=== PATIENT | female | born 2005 | race Caucasian/White ===

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

== ENCOUNTER 2025-03-25 21:01 | Observation (INO) | payer MEDICAID, OTHER ==
[~2025-03-25] VITALS: Ht 162.6 cm; Wt 54.9 kg
--- NOTE | 2025-03-25 23:33 | DVH ---
US BIOPHYSICAL PROFILE US OB LIMITED CLINICAL HISTORY: NO CARE COMPARISON: None TECHNIQUE: Real-time grayscale, color flow and M-mode imaging of the gravid uterus is performed. FINDINGS: Single living intrauterine gestation. Cephalic presentation. heart rate 141 beats per minute. Average ultrasound age 33 weeks 1 day. Estimated due date 05/12/2025. measurements (cm): BPD 8.6, HC 30.9, AC 27.8, FL 6.0. Estimated weight: 1920 g Amniotic fluid index: 15.1 cm Biophysical profile: 8 out of 8. (2 breathing, 2 activity, 2 tone, 2 ORNDA) Placenta is posterior, grade 2. The cervix measures approximately 3.1 cm in length and appears close d. No definite evidence of placental abruption or previa at this time. IMPRESSION: Single living intrauterine gestation as above. Biophysical profile score 8 out of 8.
--- NOTE | 2025-03-25 23:34 | DVH ---
US BIOPHYSICAL PROFILE US OB LIMITED CLINICAL HISTORY: NO CARE COMPARISON: None TECHNIQUE: Real-time grayscale, color flow and M-mode imaging of the gravid uterus is performed. FINDINGS: Single living intrauterine gestation. Cephalic presentation. heart rate 141 beats per minute. Average ultrasound age 33 weeks 1 day. Estimated due date 05/12/2025. measurements (cm): BPD 8.6, HC 30.9, AC 27.8, FL 6.0. Estimated weight: 1920 g Amniotic fluid index: 15.1 cm Biophysical profile: 8 out of 8. (2 breathing, 2 activity, 2 tone, 2 RONDA) Placenta is posterior, grade 2. The cervix measures approximately 3.1 cm in length and appears close d. No definite evidence of placental abruption or previa at this time. IMPRESSION: Single living intrauterine gestation as above. Biophysical profile score 8 out of 8.
[2025-03-26 00:15] LABS: Vaginal Bacteria Few; Vaginal Clue Cells None Seen; Vaginal Epithelial Cells Few; Vaginal Trichomonas Not Present
[2025-03-26 00:16] LABS: Urine Bacteria FEW /hpf (None Seen); Urine Blood Negative /uL (Negative); Urine Clarity Clear (Clear); Urine Color Light-Yellow (Yellow); Urine Protein, UAD Negative (Negative); Urine Specific Gravity 1.004 (1.001-1.035); Urine Squamous Epithelial Cell FEW /hpf (<5); Urine Urobilinogen Normal (Negative); Urine WBC 1 /HPF (0-5); Urine pH 6.5 (5.0-9.0)
[2025-03-26 00:45] LABS: Amphetamine Screen, Urine Neg (NEGATIVE); Barbiturate Scree,Urine Neg (NEGATIVE); Benzodiazephine Screen, Urine Neg (NEGATIVE); Cannabinoid Screen, Urine Neg (NEGATIVE); Cocaine Screen, Urine Neg (NEGATIVE); Opiate Scree,Urine Neg (NEGATIVE); Phencyclidine Screen, Urine Neg (NEGATIVE)
--- NOTE | 2025-03-26 01:39 | DVHDS2 ---
Physician Discharge Progress N Final Diagnosis: IUP at 33w 3d Round Ligament pain Operations or Procedures: Operations or Procedures S: 19yo with EDC of 05/12/25, EGA 33w 3d presents to place with a report of pelvic pain / pressure [id number]. She reports decreased movements, no LOF, vaginal bleeding, SALDANA or vision changes. She reports mucus d/c light green in color from vagina x 2weeks. Limited care with [facility], [facility] last visit was in November,, no longer a [place] member, yet to find another OB care provider. [facility] she was given phone number to contact Dr Ray's office to possibly re-start care. Taking vitamins and iron O: A&O x3, NAD, well groomed. pleasant. Appropriate and normal mood and affect Afebrile, VSS Respiration unlabored Heart and lungs sounds: normal Abdomen: Gravid, non-tender to palpation. Fundal Ht 38cm. Cephalic presentation Extremities: No edema UA: Neg for nitrites and leukocyte EFM: Very occasional contraction; 1 in 30minutes, mild, not felt by patient FHR baseline 135bpm with moderate variability and accelerations, no deceleration OB US report: average EGA of 33w 1d, cephalic presentation, RONDA 15.1cm, Placenta Posterior and grade 2. No previa or abruption. Cervical length 3.1cm, appears closed. Biophysical Profile 05/26 Wet mount negative for clue cells, yeast and Trichomonads Re-assessment at 00:36 Pt reports pain resolved, only mild pressure and same is not present all the time, just with certain movements A: NST reactive Normal Biophysical Profile Limited Care P: Discharge home Call OB provider on Thursday03/27/25 to re-establish care Educated on relief measures for RLP, good ergonomics, need for adequate hydration - advised to maintain adequate water intake 3rd trimester emergency S&S FMC, labor & pre-eclampsia precautions reviewed with pt; advised to seek health care if any Condition on Discharge: Stable Disposition: Home Discharge Instructions: Diet: Regular Activity: No Restrictions, As Tolerated Activity comment: Balance activities with rest periods Follow Up/Referral: Advised to call dosctor's office on Thursday03/27/25 to re-start care. Medications: None Follow Up Care: Discharge Statement: 3rd trimester emergency S&S FMC, labor & pre-eclampsia pr ecautions reviewed with pt; advised to seek health care if any "Patient was advised to return to the ER or call 911 if any headaches, dizziness, shortness of breath, chest pain, abdominal pain, bleeding, fevers, or worsening of medical condition. Patient was counseled about treatment plan, medications, possible side effects, patientverbalized understanding. All questions were answered to the best of my ability. This discharge took greater then 30 minutes in planning, reviewing documentation, counseling the patient, and discussing with other team members." Visit Coding OBGYN Date of Service: Mar 26, 2025 Billing Provider: HU PORTER CNM [employer]ICE STATION MANAGER Common Visit Codes: 05363-PJU/OBS SAME DATE (HIGH) AUTOMOBILE SERVICE STATION MANAGER Procedure Codes: 73215-38- NON-STRESS TEST HU PORTER CNM Mar 26, 2025 01:39
== END 2025-03-26 00:50 | disposition home or self-care (01) ==
LOC: LDRP 21:01
PROVIDERS: ADMIT Obstetrics & Gynecology; ATTEND Obstetrics & Gynecology
DX: O26.893 Other specified pregnancy related conditions, third trimester (principal); R10.2 Pelvic and perineal pain; O09.33 Supervision of pregnancy with insufficient antenatal care, third trimester; Z3A.33 33 weeks gestation of pregnancy; Z79.899 Other long term (current) drug therapy; Z98.890 Other specified postprocedural states
CPT/HCPCS: 59025; 76805; 76819; 80307; 81001; 81002; 87210; 94760; G0378

== ENCOUNTER 2025-03-31 18:37 | Observation (INO) | payer MEDICAID ==
[~2025-03-31] VITALS: Ht 160 cm; Wt 54.9 kg
[2025-03-31] MEDS ORDERED: LACTATED RINGER'S 1,000 ML IV SCH (20:30)
[2025-03-31] MEDS: ONDANSETRON HCL 4 MG/2 ML VIAL IV ONE (20:47)
[2025-03-31] MEDS: LOPERAMIDE HCL 2 MG CAP/TAB PO ONE (20:47)
[2025-03-31 21:14] LABS: Basophils # (auto) 0 10 ^3/uL (0-0.2); Basophils % (auto) 0.1 % (0.0-2.0); Eosinophils # (auto) 0.1 10 ^3/uL (0-0.8); Eosinophils % (auto) 0.4 % (0.0-7.0); Hematocrit 34.1 % (36.0-46.0); Hemoglobin 11.5 g/dL (12.2-16.2); Lymphocytes # (auto) 0.4 10 ^3/uL (0.4-5.4); Lymphocytes % (auto) 2.3 % (10.0-50.0); Mean Corpuscular Hemoglobin 27.8 pg (28.0-32.0); Mean Corpuscular Hgb Conc. 33.8 g/dL (32.0-36.0); Mean Corpuscular Volume 82.2 fL (80.0-100.0); Monocytes # (auto) 1.2 10 ^3/uL (0-1.3); Monocytes % (auto) 6.3 % (0.0-12.0); Neutrophils # (auto) 17.1 10 ^3/uL (1.6-8.6); Neutrophils % (auto) 90.9 % (37.0-80.0); Nucleated Red Blood Cells % 0.2 %; Platelet Count (auto) 257 10^3/uL (140-450); Red Blood Cells 4.15 10^6/uL (4.0-5.20); Red Cell Distribution Width 13.9 % (11.8-14.3); White Blood Cell 18.9 10^3/uL (4.4-10.8)
[2025-03-31 21:33] LABS: Anion Gap 15 (5-15)
[2025-03-31 21:46] LABS: Lipase 28 U/L (12-53)
[2025-03-31 21:47] LABS: Carbon Dioxide 20 mmol/L (20-31); Chloride 103 mmol/L (98-107); Glucose 80 mg/dL (74-106); Potassium 3.1 mmol/L (3.5-5.1); Sodium 138 mmol/L (136-145)
[2025-03-31 21:48] LABS: Alanine Aminotransferase 11 U/L (7-40); Albumin 4.5 g/dL (3.2-4.8); Alkaline Phosphatase 182 U/L (46-116); Amylase 96 U/L (30-118); Aspartate Aminotransferase 18 U/L (<34); BUN/Creatinine Ratio 8.6 (10.0-20.0); Bilirubin, Total 0.7 mg/dL (0.2-1.0); Blood Urea Nitrogen < 5 mg/dL (9-23); Calcium 9.4 mg/dL (8.7-10.4); Total Protein 7.2 g/dL (5.7-8.2)
[2025-03-31 22:06] LABS: Urine Bacteria FEW /hpf (None Seen); Urine Blood Negative /uL (Negative); Urine Clarity Turbid (Clear); Urine Color Yellow (Yellow); Urine Mucus FEW (None Seen); Urine Protein, UAD TRACE (Negative); Urine Specific Gravity 1.015 (1.001-1.035); Urine Squamous Epithelial Cell FEW /hpf (<5); Urine Urobilinogen Normal (Negative); Urine WBC 3 /HPF (0-5); Urine pH 6.5 (5.0-9.0)
[2025-03-31] MEDS: POTASSIUM CHL 20 Meq TABLET PO ONE (22:26)
[2025-03-31] MEDS: LACTATED RINGER'S 1,000 ML IV ONE (22:27)
--- NOTE | 2025-04-01 06:25 | DVHDS2 ---
Physician Discharge Progress N Final Diagnosis: Acute Gastroenteritis Secondary Diagnosis: Threatened labor Hypokalemia Leukocytosis Operations or Procedures: Operations or Procedures NST, OB ultrasound Other Interventions Other Interventions IV hydration IV antiemetics PO antidiarrheal meds K+ replacement orally monitoring Cervix checked, closed, not in labor Condition on Discharge: Guarded Disposition: Home Discharge Instructions: Diet: See Comment (BRAT diet, plenty of clear fluids, maintain oral hydration) Activity: Light activity Follow Up/Referral: 2-3 days w/ Primary OB Medications: OTC Loperamide, if needed for diarrhea Follow Up Care: Discharge Statement: "Patient was advised to return to the ER or call 911 if any headaches, dizziness, shortness of breath, chest pain, abdominal pain, bleeding, fevers, or worsening of medical condition. Patient was counseled about treatment plan, medications, possible side effects, patientverbalized understanding. All questions were answered to the best of my ability. This discharge took greater then 30 minutes in planning, reviewing documentation, counseling the patient, and discussing with other team members." Visit Coding OBGYN Date of Service: Apr 01, 2025 Billing Provider: TAISHA JOHNS DO E COMMERCE MERCHANT Common Visit Codes: 94323-SMN/OBS SAME DATE (HIGH) E COMMERCE MERCHANT Procedure Codes: 86401-54- NON-STRESS TEST TAISHA JOHNS DO Apr 01, 2025 06:25
== END 2025-03-31 22:40 | disposition home or self-care (01) ==
LOC: LDRP 18:37
PROVIDERS: ADMIT Obstetrics & Gynecology; ATTEND Obstetrics & Gynecology
DX: O99.613 Diseases of the digestive system complicating pregnancy, third trimester (principal); K52.9 Noninfective gastroenteritis and colitis, unspecified; O99.283 Endocrine, nutritional and metabolic diseases complicating pregnancy, third trimester; E87.6 Hypokalemia; O60.03 Preterm labor without delivery, third trimester; Z79.899 Other long term (current) drug therapy; Z3A.34 34 weeks gestation of pregnancy
CPT/HCPCS: 36415; 80053; 81001; 82150; 83690; 85025; 96361; 96374; G0378; J2405; 59025; 96360

== ENCOUNTER 2025-04-10 01:32 | Observation (INO) | payer MEDICAID ==
[~2025-04-10] VITALS: Ht 160 cm; Wt 55.3 kg
--- NOTE | 2025-04-10 11:07 | DVHDS2 ---
Discharge Summary Date of Admission Apr 10, 2025 at 01:32 Date of Discharge: Apr 10, 2025 Admitting Diagnosis Patient arrived complaining of pelvic pain contraction like and dysuria. Labs/Diagnostic Data: ent left AMA Brief Hx & Hospital Course: patient left AMA Consults/Reason for consult None Condition at Discharge: Fair Final Diagnosis/Problems List left AMA pelvic pain questionable labor Discharge Disposition: Home Discharge Instruct/Medications Diet: Regular, See Comment Diet comment: N/A Activity: Light activity Activity comment: N/A Follow Up/Referral: Pelvic rest kick counts labor precautions NST performed Discharge Statement: "Patient was advised to return to the ER or call 911 if any headaches, dizziness, shortness of breath, chest pain, abdominal pain, bleeding, fevers, or worsening of medical condition. Patient was counseled about treatment plan, medications, possible side effects, patientverbalized understanding. All questions were answered to the best of my ability. This discharge took greater then 30 minutes in planning, reviewing documentation, counseling the patient, and discussing with other team members." ASSESSMENT ASSESSMENT Assessment Visit Coding OBGYN Date of Service: Apr 10, 2025 Billing Provider: NATHAN PAULINO DO CONSTRUCTION AND MAINTENANCE INSPECTOR Common Visit Codes: 14204-[id number] INP/OBS CARE(HIGH), 41559-YQL/OBS SAME DATE (LOW), 93491-QGQ/OBS SAME DATE (MOD) CONSTRUCTION AND MAINTENANCE INSPECTOR Procedure Codes: 16039-01- NON-STRESS TEST NATHAN PAULINO DO Apr 10, 2025 11:07
== END 2025-04-10 01:47 | disposition left against medical advice (07) ==
LOC: LDRP 01:32
PROVIDERS: ADMIT Obstetrics & Gynecology; ATTEND Obstetrics & Gynecology
DX: O62.9 Abnormality of forces of labor, unspecified (principal); Z3A.35 35 weeks gestation of pregnancy; Z79.899 Other long term (current) drug therapy

== ENCOUNTER 2025-05-08 11:00 | Observation (INO) | payer MEDICAID ==
[~2025-05-08] VITALS: Ht 160 cm; Wt 58.1 kg
--- NOTE | 2025-05-08 12:54 | DVH ---
BIOPHYSICAL PROFILE HISTORY: decreased movement TECHNIQUE: Multiple transabdominal real-time grayscale sonographic images through the gravid uterus of the fetus with duplex Doppler color flow and M-mode spectral analysis FINDINGS: BIOPHYSICAL PROFILE: breathing score: 2 movement score: 2 tone score: 2 Quantitative RONDA score: 2 (RONDA: 17 Cm.) Total score: 8 The cervix was not seen Single live fetus in cephalic presentation. heart rate 133 beats per minute. Grade II posterior placenta without previa or abruption IMPRESSION: Biophysical profile score: 8/8
--- NOTE | 2025-05-09 13:40 | DVHDS2 ---
Physician Discharge Progress N Final Diagnosis: sep fm,abd pain 39wks Operations or Procedures: Operations or Procedures nst reactive reviwednealo Condition on Discharge: Good Disposition: Home Discharge Instructions: Diet: Regular Activity: Light activity Medications: na Follow Up Care: Specialist: 1w Discharge Statement: "Patient was advised to return to the ER or call 911 if any headaches, dizziness, shortness of breath, chest pain, abdominal pain, bleeding, fevers, or worsening of medical condition. Patient was counseled about treatment plan, medications, possible side effects, patientverbalized understanding. All questions were answered to the best of my ability. This discharge took greater then 30 minutes in planning, reviewing documentation , counseling the patient, and discussing with other team members." Visit Coding OBGYN Date of Service: May 08, 2025 Billing Provider: TWIN SCHAEFER DO INSTITUTE DIRECTOR Common Visit Codes: 57157-KBLFPUL OBS CARE (HIGH) INSTITUTE DIRECTOR Procedure Codes: 65539-53- NON-STRESS TEST TWIN SCHAEFER DO May 09, 2025 13:40
== END 2025-05-08 12:41 | disposition home or self-care (01) ==
LOC: LDRP 11:00
PROVIDERS: ADMIT Obstetrics & Gynecology; ATTEND Obstetrics & Gynecology
DX: O36.8130 Decreased fetal movements, third trimester, not applicable or unspecified (principal); Z98.890 Other specified postprocedural states; Z79.899 Other long term (current) drug therapy; Z3A.39 39 weeks gestation of pregnancy
CPT/HCPCS: 59025; 76819; 81002; 82948; 94760; G0378

== ENCOUNTER 2025-05-26 15:52 | Emergency (ER) | payer MEDICAID ==
[~2025-05-26] VITALS: Ht 162.6 cm; Wt 59.0 kg
[2025-05-26 16:01] VITALS: PULSE 86; RESP 18; O2SAT 100
--- NOTE | 2025-05-26 16:05 | ED.PDOC ---
History of Present Illness HPI Comments 19 year old female presents to the ED with a chief complaint of hypotension onset today (05/26/25). Patient went to urgent care for possible Mastitis, presented with nausea, vomiting, weakness, pale. Rapid response was activated, was brought to ED on a wheelchair. Patient gave on 05/11/25, has been br east feeding, using pump. Currently experiencing RT breast pain and swelling. She woke up this morning experiencing flu-like symptoms. No other symptoms or modifying factors present at this time. Chief Complaint: Low Blood Pressure Time Seen by MD: 15:55 Reviewed Notes: Medications, Allergies Allergies: Coded Allergies: NO KNOWN ALLERGIES (Unverified , 06/29/18) Home Meds Active Scripts Cephalexin (KEFLEX CAPSULE) 250 Mg Cp, 250 MG PO QID for 5 Days, #20 BOTTLE Prov:CHRISTINE HERNANDEZ MD 05/26/25 Information Source: Patient Mode of Arrival: Wheelchair Severity: Moderate Timing: Hours Duration: Since onset Prehospital treatment: None Past Medical History PAST MEDICAL HISTORY: Denies Surgical History: Denies all surgeries STRUCTURAL BIOLOGIST History: No Pertinent STRUCTURAL BIOLOGIST History Family History Family History: Unknown Social History Smoker: Non-Smoker Alcohol: Denies ETOH Use Drugs: Denies Drug Use Lives In: Home Constitutional: reports: weakness; denies: chills, diaphoresis, fatigue, fever, malaise, sweats, others EENTM: denies: blurred vision, double vision, ear bleeding, ear discharge, ear drainage, ear pain, ear ringing, eye pain, eye redness, hearing loss, mouth pain, mouth swelling, nasal discharge, nose bleeding, nose congestion, nose pain, photophobia, tearing, throat pain, throat swelling, voice changes, others Respiratory: denies: cough, hemoptysis, orthopnea, SOB at rest, shortness of breath, SOB with excertion, stridor, wheezing, others Cardiovascular: reports: others (hypotension); denies: chest pain, dizzy spells, diaphoresis, Dyspnea on exertion, edema, irregular heart beat, left arm pain, lightheadedness, palpitations, PND, syncope Gastrointestinal: reports: nausea, vomiting; denies: abdomen distended, abdominal pain, blood streaked bowels, constipated, diarrhea, dysphagia, difficulty swallowing, hematemesis, melena, poor appetite, poor fluid intake, rectal bleeding, rectal pain, others Genitourinary: denies: abnormal vagina bleeding, burning, dyspareunia, dysuria, flank pain, frequency, hematuria, incontinence, pain, , vagina discharge, urgency, others Neurological: reports: weakness; denies: dizziness, fainting, headache, left sided numbness, left sided weakness, numbness, paresthesia, pre-existing deficit, right sided numbness, right sided weakness, seizure, speech problems, tingling, tremors, others Musculoskeletal: denies: back pain, gout, joint pain, joint swelling, muscle pain, muscle stiffness, neck pain, others Integumetry: reports: change in color (pale); denies: bruises, change in hair/ nails, dryness, laceration, lesions, lumps, rash, wounds, others Allergic/Immunocompromised: denies: Difficulty Healing, Frequent Infections, Hives, Itching, others Hematologic/Lymphatic: denies: anemia, blood clots, easy bleeding, easy bruising, swollen glands, others Endocrine: denies: excessive hunger, excessive sweating, excessive thirst, excessive urination, flushing, intolerance to cold, intolerance to heat, unexplained weight gain, unexplained weight loss, others Psychiatric: denies: anxiety, bipolar disorder, depression, hopeless, panic d isorder, schizophrenia, sleepless, suicidal, others All Other Systems: Reviewed and Negative Physical Exam General Appearance: Moderate Distress, Normal HEENT: Normal ENT Inspection, Pharynx Normal, TMs Normal Neck: Full Range of Motion, Non-Tender, Normal, Normal Inspection Respiratory: Chest Non-Tender, Lungs Clear, No Accessory Muscle Use, No Respiratory Distress, Normal Breath Sounds Cardiovascular: No Edema, No JVD, No Murmur, No Gallop, Normal Peripheral Pulses, Regular Rate/Rhythm Breast Exam: (R) Tenderness Gastrointestinal: No Organomegaly, Non Tender, No Pulsatile Mass, Normal Bowel Sounds, Soft Genitalia: Deferred Pelvic: Deferred Rectal: Deferred Extremities: No calf tenderness, Normal capillary refill, Normal inspection, Normal range of motion, Non-tender, No pedal edema Musculoskeletal : Apperance: Normal Neurologic: Alert, national insurance officer II-XII nml as Tested, No Motor Deficits, Normal Affect, Normal Mood, No Sensory Deficits Cerebellar Function: NOT DONE Reflexes: NOT DONE Skin: Dry, Normal Color, Warm Peripheral Pulses: 3+ Radial (R), 3+ Radial (L) Lymphatic: No Adenopathy Was a procedure done? Was a procedure done?: No EKG EKG : Pulse Rate (adult): 82 Cardiac Rhythm: NSR Differential Dx Considerations may include: Vasovagal Electrolyte imbalance X-Ray, Labs, Meds, VS Vital Signs Date Time Temp Pulse Resp B/P (MAP) Pulse Ox O2 Delivery O2 Flow Rate FiO2 05/26/25 16:05 82 05/26/25 16:01 86 18 100 Room Air* 0 21 05/26/25 16:00 82 05/26/25 16:00 98.2 86 19 96/65 (75) 100 98.2 05/26/25 15:53 98.2 92 20 96/65 100 98.2 Lab Test 05/26/25 16:25 Range/Units White Blood Count 11.8 H 4.4-10.8 10^3/uL Red Blood Count 3.63 L 4.0-5.20 10^6/uL Hemoglobin 9.8 L 12.2-16.2 g/dL Hematocrit 30.9 L 36.0-46.0 % Mean Corpuscular Volume 85.2 80.0-100.0 fL Mean Corpuscular Hemoglobin 27.1 L 28.0-32.0 pg Mean Corpuscular Hemoglobin Concent 31.8 L 32.0-36.0 g/dL Red Cell Distribution Width 17.5 H 11.8-14.3 % Platelet Count 307 140-450 10^3/uL Mean Platelet Volume 7.3 6.9-10.8 fL Neutrophils (%) (Auto) 88.0 H 37.0-80.0 % Lymphocytes (%) (Auto) 4.3 L 10.0-50.0 % Monocytes (%) (Auto) 6.6 0.0-12.0 % Eosinophils (%) (Auto) 0.9 0.0-7.0 % Basophils (%) (Auto) 0.2 0.0-2.0 % Neutrophils # (Auto) 10.4 H 1.6-8.6 10 ^3/uL Lymphocytes # (Auto) 0.5 0.4-5.4 10 ^3/uL Monocytes # (Auto) 0.8 0-1.3 10 ^3/uL Eosinophils # (Auto) 0.1 0-0.8 10 ^3/uL Basophils # (Auto) 0 0-0.2 10 ^3/uL Nucleated Red Blood Cells 0.0 % Sodium Level 143 136-145 mmol/L Potassium Level 2.8 L 3.5-5.1 mmol/L Chloride Level 112 H 98-107 mmol/L Carbon Dioxide Level 19 L 20-31 mmol/L Anion Gap 12 5-15 Blood Urea Nitrogen 13 9-23 mg/dL Creatinine 0.52 L 0.550-1.02 mg/dL Glomerular Filtration Rate Calc 137 >90 mL/min BUN/Creatinine Ratio 25.0 H 10.0-20.0 Serum Glucose 75 74-106 mg/dL Calcium Level 8.6 L 8.7-10.4 mg/dL Current Medications Medications (Trade) Dose Ordered Sig/Christiano Route Start Time Stop Time Status Last Admin Sodium Chloride 1,000 ml @ 1,000 mls/hr Q1H ONCE IV 05/26/25 16:15 05/26/25 17:14 DC 05/26/25 16:29 Sodium Chloride 1,000 ml @ 150 mls/hr Q6H40M ONCE IV 05/26/25 16:15 05/26/25 22:54 05/26/25 17:07 Patient alert. Vasovagal. Vitals stable. Answering questions. Establish intravenous access. Was given fluids. Right breast slightly enlarged. Mastoiditis. Explained to the patient. Continue monitoring. Followed by night physician Time of 1ST Reevaluation: 16:25 Reevaluation 1ST: Improved Patient Education/Counseling: Diagnosis, Treatment, Prognosis Family Education/Counseling: No Family Present SEPSIS Sepsis Screen Date sepsis recognized/suspect: May 26, 2025 Time Sepsis recognized/suspect: 1557 Recent Procedure: No On Antibiotic Therapy: No Respiratory Rate >20: No Heart Rate >90: Yes Temp<36 C (96.8 F) or >38.3 C: No SBP <90 or MAP <65 mmHG: No New Acute Mental Status Change: No Is the patient on CPAP, BIPAP,: No Physician Orders Electrocardigram (05/26/25 16:04) Urinalysis (05/26/25 16:11) Sodium Chloride 0.9% (05/26/25 16:15) Vital Signs Date Time Temp Pulse Resp B/P (MAP) Pulse Ox O2 Delivery O2 Flow Rate FiO2 05/26/25 16:05 82 05/26/25 16:01 86 18 100 Room Air* 0 21 05/26/25 16:00 82 05/26/25 16:00 98.2 86 19 96/65 (75) 100 98.2 05/26/25 15:53 98.2 92 20 96/65 100 98.2 Laboratory Tests Test 05/26/25 16:25 White Blood Count 11.8 10^3/uL (4.4-10.8) H Medications Medications Dose Ordered Sig/Christiano Route Start Time Stop Time Status Last Admin Dose Admin Sodium Chloride 1,000 ml @ 150 mls/hr Q6H40M ONCE IV 05/26/25 16:15 05/26/25 22:54 05/26/25 17:07 Sodium Chloride 1,000 ml @ 1,000 mls/hr Q1H ONCE IV 05/26/25 16:15 05/26/25 17:14 DC 05/26/25 16:29 Departure 1 Departure Time of Disposition: 16:53 Impression: Primary Impression: Hypokalemia Additional Impression: Mastoiditis Qualified Codes: H70.91 - Unspecified mastoiditis, right ear Disposition: 30 STILL A PATIENT Condition: Good e-Prescriptions Cephalexin (KEFLEX CAPSULE) 250 Mg Cp 250 MG PO QID for 5 Days, #20 BOTTLE Prov: CHRISTINE HERNANDEZ MD 05/26/25 Discharged With: Self Critical Care Note Critical Care Time?: No Stability Stability form required: No Heart Score Heart Score: Heart Score Response (Comments) Value History N/A 0 EKG N/A 0 Age N/A 0 Risk Factors N/A 0 Troponin N/A 0 Total 0 I personally scribed for CHRISTINE HERNANDEZ MD ([email or web address]) on 05/26/25 at 16:05. Electronically submitted by Yancy Mann ([email or web address]). CHRISTINE HERNANDEZ MD May 26, 2025 16:05
[2025-05-26] MEDS: SODIUM CHLORIDE 0.9% 1,000 ML IV ONE ×2 (16:29→17:07)
[2025-05-26 16:54] LABS: Sodium 143 mmol/L (136-145)
[2025-05-26] MEDS ORDERED: CEPH250C PO (16:54)
[2025-05-26 16:55] LABS: Anion Gap 12 (5-15)
[2025-05-26 16:59] LABS: Calcium 8.6 mg/dL (8.7-10.4); Carbon Dioxide 19 mmol/L (20-31); Chloride 112 mmol/L (98-107); Hematocrit 30.9 % (36.0-46.0); Hemoglobin 9.8 g/dL (12.2-16.2); Mean Corpuscular Hemoglobin 27.1 pg (28.0-32.0); Mean Corpuscular Volume 85.2 fL (80.0-100.0); Nucleated Red Blood Cells % 0.0 %; Potassium 2.8 mmol/L (3.5-5.1)
[2025-05-26 17:00] LABS: BUN/Creatinine Ratio 25.0 (10.0-20.0); Blood Urea Nitrogen 13 mg/dL (9-23); Glucose 75 mg/dL (74-106)
[2025-05-26] MEDS: POTASSIUM EFFERVESENT TAB 25 MEQ PO ONE (17:58)
[2025-05-26] MEDS: cefTRIAXone 1GM/50ML D5W 50 ML IV ONE (17:59)
[2025-05-26 18:25] LABS: Urine Protein, UAD Negative (Negative)
[2025-05-26 18:41] LABS: Urine WBC Clumps 2 /hpf (None Seen)
[2025-05-26] MEDS ORDERED: CEPH500C PO (19:46)
[2025-05-26] MEDS ORDERED: ACET-1304 PO (19:46)
[2025-05-26] MEDS ORDERED: IBUP1TAB5 PO (19:46)
[2025-05-26 20:04] VITALS: BP 102/68; PULSE 78; RESP 20; TEMP 98.2; O2SAT 100
--- NOTE | 2025-05-29 07:44 | ECG ---
[facility] Test Date: 2025-05-26 Test Time: 16:00:14 Pat Name: HELENE GUILLORY Department: [facility] ED Patient ID: [facility]-[id number] Room: Gender: F Die Caster: JUAN DANIEL : 2005 Requested By: CHRISTINE HERNANDEZ Order Number: [id number] Reading MD: Jacob Nash Measurements Intervals [place] Rate: 82 P: -20 FL: 169 QRS: 39 QRSD: 91 T: 28 QT: 352 QTc: 411 Interpretive Statements Sinus rhythm Electronically Signed On 05-29-2025 18:16:24 PDT by Jacob Nash Please click the below link to view image of tracing.
== END 2025-05-26 20:18 | disposition home or self-care (01) ==
LOC: ER 15:54
DX: E87.6 Hypokalemia (principal); H70.899 Other mastoiditis and related conditions, unspecified ear; Z79.899 Other long term (current) drug therapy
CPT/HCPCS: 36415; 80048; 81001; 82947; 85025; 93005; 96361; 96365; 99284; J0696; J7030